=== PATIENT | male | born 1955 ===

== ENCOUNTER 2022-01-10 09:27 | Outpatient (CLI) | payer OTHER, SELFPAY ==
[2022-01-10 12:42] LABS: PSA Screen* < 0.06 ng/mL (0.10-4.00)
== END 2022-01-10 09:28 | disposition home or self-care (01) ==
LOC: NFLDREF 09:28
PROVIDERS: PCP Internal Medicine; Visit Provider Internal Medicine
DX: Z00.00 Encounter for general adult medical examination without abnormal findings (principal); Z85.46 Personal history of malignant neoplasm of prostate; Z12.5 Encounter for screening for malignant neoplasm of prostate
CPT/HCPCS: 84153

== ENCOUNTER 2022-10-18 15:56 | Outpatient (CLI) | payer OTHER, SELFPAY | END 2022-10-18 15:57 | disposition home or self-care (01) | LOC: NFLDREF 15:58 | PROVIDERS: PCP Internal Medicine; Visit Provider Internal Medicine | DX: I10 Essential (primary) hypertension (principal); E66.9 Obesity, unspecified | CPT/HCPCS: 80048 ==

== ENCOUNTER 2023-07-18 09:08 | Outpatient (CLI) | payer MEDICARE, SELFPAY | END 2023-07-18 09:09 | disposition home or self-care (01) | LOC: NFLDREF 14:47 | PROVIDERS: PCP Internal Medicine; Referring Provider Internal Medicine; Visit Provider Internal Medicine | DX: I10 Essential (primary) hypertension (principal); Z12.5 Encounter for screening for malignant neoplasm of prostate; Z85.46 Personal history of malignant neoplasm of prostate; Z79.899 Other long term (current) drug therapy; Z13.6 Encounter for screening for cardiovascular disorders | CPT/HCPCS: 80048; G0103 ==

== ENCOUNTER 2025-01-06 07:52 | Outpatient (CLI) | payer MEDICARE, SELFPAY | END 2025-01-06 07:53 | disposition home or self-care (01) | PROVIDERS: PCP Internal Medicine; Visit Provider Internal Medicine | DX: Z13.6 Encounter for screening for cardiovascular disorders (principal); Z85.46 Personal history of malignant neoplasm of prostate | CPT/HCPCS: 80048; G0103 ==